=== PATIENT | male | born 1960 | race Two or more races ===

== ENCOUNTER 2025-09-16 13:24 | Outpatient (CLI) | payer OTHER | END 2025-09-16 13:31 | disposition home or self-care (01) | LOC: SONOGRAMA 13:24 | PROVIDERS: ATTEND Pathology Anatomic Pathology & Clinical Pathology | DX: D34 Benign neoplasm of thyroid gland (principal); E07.89 Other specified disorders of thyroid; E04.1 Nontoxic single thyroid nodule ==